=== PATIENT | female | born 1945 | race African-American/Black ===

== ENCOUNTER 2024-05-20 13:52 | Emergency (ER) | payer OTHER ==
[2024-05-20 14:51] VITALS: RESP 18; TEMP 98.1
--- NOTE | 2024-05-20 15:03 | ED ---
Lower Extremity Injury HPI - General Chief Complaint: Extremity Injury, Lower Stated Complaint: leg pain Time Seen by Provider: 05/20/24 14:05 Source: patient, RN notes reviewed Mode of arrival: ambulatory Limitations: no limitations - History of Present Illness Initial Comments: This is an 78-year-old female presenting to the emergency department chief complaint of left knee pain and left groin pain that started approximately 2 to 3 weeks ago. Patient states that at this time she had a fall when she was in the parking lot using her walker fell onto the left knee and onto her right hip. Patient denies hitting her head or loss conscious time of the injury. States that over the past week she has had continued pain of her right knee that is exacerbated with ambulation. Patient dates that pain radiates from her left knee into her groin. She denies loss of bladder bowel continence or saddle anesthesias. Patient does have a history of osteoporosis. Denies previous surgeries of the left knee. has been taking Motrin Tylenol at home with some relief. - Related Data Previous Rx's Medication Instructions Recorded Ibuprofen [Motrin] 800 mg PO Q6HR #30 tab 05/20/24 Allergies Allergy/AdvReac Type Severity Reaction Status Date / Time tomato Allergy Rash/Hives Verified 05/20/24 15:55 Review of Systems ROS Statement: Those systems with pertinent positive or pertinent negative responses have been documented in the HPI. ROS Other: All systems not noted in ROS Statement are negative. Past Medical History Past Medical History: Osteoarthritis (OA) Past Surgical History: Tubal Ligation Smoking Status: Never smoker Past Alcohol Use History: None Reported Past Drug Use History: None Reported General Exam Limitations: no limitations General appearance: alert, in no apparent distress Eye exam: Present: normal appearance, PERRL, EOMI. Absent: scleral icterus, conjunctival injection, periorbital swelling Neck exam: Present: normal inspection. Absent: tenderness, meningismus, lymphadenopathy Respiratory exam: Present: normal lung sounds bilaterally. Absent: respiratory distress, wheezes, rales, rhonchi, stridor Cardiovascular Exam: Present: regular rate, normal rhythm, normal heart sounds. Absent: systolic murmur, diastolic murmur, rubs, gallop, clicks GI/Abdominal exam: Present: soft, normal bowel sounds. Absent: distended, tenderness, guarding, rebound, rigid Left Knee exam: Present: tenderness (medial). Absent: swelling, abrasion, ecchymosis, deformity Neurovascular tendon exam: Present: no vascular compromise Gait: observed and normal Back exam: Present: normal inspection Neurological exam: Present: alert, oriented X3, CN II-XII intact Course Vital Signs 05/20/24 05/20/24 14:47 16:35 Temperature 98.1 F 98.1 F Pulse Rate 94 87 Respiratory 18 18 Rate Blood Pressure 115/72 118/79 O2 Sat by Pulse 98 98 Oximetry Medical Decision Making - Medical Decision Making Was pt. sent in by a medical professional or institution (, PA, NUCLEAR EQUIPMENT DESIGN ENGINEER, urgent care, hospital, or fci...) When possible be specific @ -No Did you speak to anyone other than the patient for history (EMS, parent, family, police, friend...)? What history was obtained from this source @ -No Did you review nursing and triage notes (agree or disagree)? Why? @ -I reviewed and agree with nursing and triage notes Were old charts reviewed (outside hosp., previous admission, EMS record, old EKG, old radiological studies, urgent care reports/EKG's, fci records)? Report findings @ -No old charts were reviewed Differential Diagnosis (chest pain, altered mental status, abdominal pain women, abdominal pain men, vaginal bleeding, weakness, fever, dyspnea, syncope, headache, dizziness, GI bleed, back pain, seizure, CVA, palpatations, mental health, musculoskeletal)? @ -Differential Musculoskeletal Muscular strain, contusion, ligament sprain, fracture, arthritis, septic arthritis, bursitis, cellulitis, muscle spasm, nerve compression, DVT, arterial occlusion, herpes zoster, electrolyte abnormality, tumor.... This is not meant to be in all inclusive list EKG interpreted by me (3pts min.). @ -none X-rays interpreted by me (1pt min.). @ -XR left knee reveals no acute osseous pathology with mild tricompartmental changes CT interpreted by me (1pt min.). @ -None done U/S interpreted by me (1pt. min.). @ -None done What testing was considered but not performed or refused? (CT, X-rays, U/S, labs)? Why? @ -None What meds were considered but not given or refused? Why? @ -None Did you discuss the management of the patient with other professionals (professionals i.e. , PA, NUCLEAR EQUIPMENT DESIGN ENGINEER, lab, RT, psych nurse, social worker school, open hearth furnace laborer, teacher, deputy probation officer, caseworker protective services)? Give summary @ -No Was smoking cessation discussed for >3mins.? @ -No Was critical care preformed (if so, how long)? @ -No Were there social determinants of health that impacted care today? How? (Homelessness, low income, unemployed, alcoholism, drug addiction, transportation, low edu. Level, literacy, decrease access to med. care, shelter, rehab)? @ -No Was there de-escalation of care discussed even if they declined (Discuss DNR or withdrawal of care, Hospice)? DNR status @ -No What co-morbidities impacted this encounter? (DM, HTN, Smoking, COPD, CAD, Cancer, CVA, ARF, Chemo, Hep., AIDS, mental health diagnosis, sleep apnea, morbid obesity)? @ -None Was patient admitted / discharged? Hospital course, mention meds given and route, prescriptions, significant lab abnormalities, going to OR and other pertinent info. @ -Discharge. 78-year-old female with left knee pain. Evaluation patient is resting company no signs acute distress. Vital stable. She is noted to have tenderness to the medial knee that exacerbated with range of motion and palpation. There is no overlying erythema, edema. There is mild crepitus with range of motion. Patient states that pain radiates from her knee into her groin. Patient has full range of motion of the left hip. Discussed with patient that symptoms of groin pain are likely secondary to changes in ambulation over the past few weeks due to pain. Minimal clinical concern for pelvic or hip pathology therefore x-ray of the pelvis and hip was deferred at this time. Patient is in agreement with this. X-ray of the left knee no acute osseous pathology. Discussed with patient that symptoms are likely secondary to injury few weeks ago continue supportive treatment at home. Provided with Monyt wrap and prescription for Motrin. Discussed Dr. Morrison Undiagnosed new problem with uncertain prognosis? @ -No Drug Therapy requiring intensive monitoring for toxicity (Heparin, Nitro, Insulin, Cardizem)? @ -No Were any procedures done? @ -No Diagnosis/symptom? @ -fall, Left knee pain Acute, or Chronic, or Acute on Chronic? @ -acute Uncomplicated (without systemic symptoms) or Complicated (systemic symptoms)? @ -Uncomplicated Side effects of treatment? @ -No Exacerbation, Progression, or Severe Exacerbation? @ -No Poses a threat to life or bodily function? How? (Chest pain, [place], PR, pneumonia, PE, COPD, DKA, ARF, appy, cholecystitis, CVA, Diverticulitis, Homicidal, Suicidal, threat to staff... and all critical care pts) @ -No Disposition Clinical Impression: Knee sprain Disposition: HOME SELF-CARE Condition: Stable Instructions (If sedation given, give patient instructions): Knee Sprain (ED) Additional Instructions: Please return to the Emergency Department if symptoms worsen or any other concerns. continue supportive treatment at home with tylenol and motrin as needed. Prescriptions: Ibuprofen [Motrin] 800 mg PO Q6HR #30 tab Is patient prescribed a controlled substance at d/c from ED?: No Referrals: None,Stated [Primary Care Provider] - 1-2 days Time of Disposition: 15:57
[2024-05-20] MEDS: IBUPROFEN 800 MG TAB PO STA (15:40)
--- NOTE | 2024-05-20 15:43 | XR ---
EXAMINATION TYPE: XR knee complete LT DATE OF EXAM: 05/20/2024 3:32 PM COMPARISON: None CLINICAL INDICATION: Female, 78 years old with history of pain, fall; [facility] TECHNIQUE: XR knee complete LT 3 views submitted. FINDINGS: No evidence of any acute osseous pathology, soft tissue swelling, or joint effusion is no shital. Tricompartmental osteophyte formation involving the femoral condyles, tibial plateau and patella . Mild joint space narrowing. IMPRESSION: 1. No acute osseous pathology. 2. Mild tricompartmental osteoarthritic changes. [facility], , 05/20/2024 3:40 PM
[2024-05-20 16:36] VITALS: BP 118/79; PULSE 87
== END 2024-05-20 17:21 | disposition home or self-care (01) ==
LOC: EC 13:52 → MERGE 13:52 → EC 17:21
DX: S83.92XA Sprain of unspecified site of left knee, initial encounter (principal); Z91.018 Allergy to other foods; W18.30XA Fall on same level, unspecified, initial encounter
CPT/HCPCS: 99283